=== PATIENT | female | born 1985 | race Caucasian/White ===

== ENCOUNTER 2017-09-05 18:13 | Emergency (ER) | payer OTHER ==
[2017-09-05] MEDS ORDERED: ONDANSETRON 4 MG TAB.RAPDIS PO ONE (18:43)
[2017-09-05] MEDS ORDERED: OXYCODONE-ACETAMINOPHEN 5-325 MG TABLET PO ONE (18:43)
--- NOTE | 2017-09-05 18:45 | ER Document Report ---
ED Medical Screen (RME) - General Chief Complaint: Laceration Stated Complaint: FINGER LACERATION Time Seen by Provider: 09/05/17 18:41 Notes: 31-year-old female patient with amputation of the tip of the left index finger. Looking at the limited piece it appears to have just a barely gone past the dermis at the fingertip. She states the pain is not too bad right now but becomes quite severe when it is unwrapped. She will be given pain medications at this time to possibly help decrease her discomfort when she is treated in the main ED. I have greeted and performed a rapid initial assessment of this patient. A comprehensive ED assessment and evaluation of the patient, analysis of test results and completion of the medical decision making process will be conducted by additional ED providers. TRAVEL OUTSIDE OF THE [place] IN LAST 30 DAYS: No - Related Data Allergies/Adverse Reactions: No Known Allergies Allergy (Verified 09/05/17 18:18) Past Medical History - Social History Chew tobacco use (# tins/day): No Frequency of alcohol use: Occasional Drug Abuse: None - Past Medical History Cardiac Medical History: Reports: Hx Hypertension - hx of 2007-no current meds Denies: Hx Coronary Artery Disease, Hx Heart Attack Pulmonary Medical History: Denies: Hx Asthma, Hx Bronchitis, Hx COPD, Hx Pneumonia Neurological Medical History: Denies: Hx Cerebrovascular Accident, Hx Seizures Renal/ Medical History: Denies: Hx Peritoneal Dialysis Musculoskeltal Medical History: Reports Hx Arthritis Past Surgical History: Reports: Hx Oral Surgery - jaw realignment, Hx Orthopedic Surgery - bilateral ankles, - Immunizations Hx Diphtheria, Pertussis, Tetanus Vaccination: Yes Physical Exam - Vital signs Vitals: Temp Pulse Resp BP Pulse Ox 97.8 F 71 18 136/80 H 98 09/05/17 18:32 09/05/17 18:32 09/05/17 18:32 09/05/17 18:32 09/05/17 18:32 Course - Vital Signs Vital signs: Temp Pulse Resp BP Pulse Ox 97.8 F 71 18 136/80 H 98 09/05/17 18:32 09/05/17 18:32 09/05/17 18:33 09/05/17 18:32 09/05/17 18:32
[2017-09-05] MEDS ORDERED: BUPIVACAINE HCL 0.5 % INJ/PF 30 ML SDV INJ ONE (19:04)
[2017-09-05] MEDS ORDERED: LIDOCAINE 1% INJ-PF (10 MG/ML) 30 ML SDV INJ ONE (19:04)
--- NOTE | 2017-09-05 19:11 | ER Document Report ---
ED Extremity Problem, Upper - General Chief Complaint: Laceration Stated Complaint: FINGER LACERATION Time Seen by Provider: 09/05/17 18:41 Mode of Arrival: Ambulatory Information source: Patient TRAVEL OUTSIDE OF THE [place] IN LAST 30 DAYS: No - HPI Patient complains to provider of: Injury, Left Onset: Just prior to arrival Recent injury: Yes Where: Home Notes: Patient arrives with complaints of left fingertip laceration. She was cutting tobias fat when she accidentally sliced the tip of her left index finger off. She is having trouble getting the wound to stop bleeding. She denies any other injuries. She denies any numbness, tingling, weakness. She is on no blood thinning medications. She has had a tetanus within the last 5 years. She denies any nausea, vomiting, diarrhea. No other complaints or injuries. - Related Data Allergies/Adverse Reactions: No Known Allergies Allergy (Verified 09/05/17 18:18) Past Medical History - Social History Smoking Status: Never Smoker Chew tobacco use (# tins/day): No Frequency of alcohol use: Occasional Drug Abuse: None Family History: Reviewed & Not Pertinent Patient has suicidal ideation: No Patient has homicidal ideation: No - Past Medical History Cardiac Medical History: Reports: Hx Hypertension - hx of 2007-no current meds Denies: Hx Coronary Artery Disease, Hx Heart Attack Pulmonary Medical History: Denies: Hx Asthma, Hx Bronchitis, Hx COPD, Hx Pneumonia Neurological Medical History: Denies: Hx Cerebrovascular Accident, Hx Seizures Renal/ Medical History: Denies: Hx Peritoneal Dialysis Musculoskeltal Medical History: Reports Hx Arthritis Past Surgical History: Reports: Hx Oral Surgery - jaw realignment, Hx Orthopedic Surgery - bilateral ankles, - Immunizations Hx Diphtheria, Pertussis, Tetanus Vaccination: Yes Review of Systems - Review of Systems -: Yes All other systems reviewed and negative Physical Exam - Vital signs Vitals: Temp Pulse Resp BP Pulse Ox 97.8 F 71 18 136/80 H 98 09/05/17 18:32 09/05/17 18:32 09/05/17 18:32 09/05/17 18:32 09/05/17 18:32 - Notes Notes: GENERAL: alert, cooperative, nontoxic, no distress. HEAD: normocephalic, atraumatic EYES: conjunctiva pink without discharge, no external redness or swelling. EARS: no external swelling, no external redness NOSE: atraumatic, no external swelling MOUTH/THROAT: mucous membranes moist and pink NECK: soft, supple, full range of motion, no meningismus. CHEST: no distress, lungs clear and equal throughout. No wheezing, rales, rhonchi. CARDIAC: regular rate and rhythm, no murmur, normal capillary refill, normal pulses. BACK: full range of motion, no CVA tenderness. EXTREMITIES: full range of motion of all extremities. No redness, no swelling. Patient is noted to have a deep avulsion laceration to the left index finger. There is active bleeding noted. There is no surrounding erythema. Bleeding is controlled with pressure. Full range of motion of the finger. NEURO: alert and oriented 3, no focal deficits, full range of motion of all extremities. PYSCH: appropriate mood, affect. Patient is cooperative. SKIN: pink, warm, dry, no rash. Course - Re-evaluation Re-evalutation: 09/05/17 20:33 Patient is nontoxic appearing with stable vitals. The patient had an avulsion laceration to the tip of her left index finger. Her tetanus is up-to-date. Neurovascular she is intact. The wound was cleaned with Shur-Clens and irrigated with normal saline and Gelfoam dressing was applied. There is no bleeding noted after this was placed. I observe the patient for approximately 15 minutes after the dressing was placed and she continues to have no bleeding. The patient will be discharged home with a prescription for Philipp. Instructions for wound care. Follow-up if not better in 1 week, sooner for increasing pain, fever, redness, numbness, tingling, weakness, any further concerns. The patient is noted to have elevated blood pressure during today's emergency department visit. The patient was informed of this finding. The patient was instructed that this may be related to pre-hypertension and requires further evaluation with a primary care provider. The patient has no hypertensive symptoms at this time. The patient's emergency department workup and current diagnosis were explained to the patient and or family. Follow-up instructions were provided. Medications if prescribed were discussed. Instructions for when to return to the emergency department including specific worrisome symptoms were discussed with the patient and/or family. - Vital Signs Vital signs: Temp Pulse Resp BP Pulse Ox 97.8 F 71 18 136/80 H 98 09/05/17 18:32 09/05/17 18:32 09/05/17 18:33 09/05/17 18:32 09/05/17 18:32 Procedures - Laceration/Wound Repair left index finger Wound length (cm): 1 Wound's Depth, Shape: Flap Laceration pre-procedure: Shur-Clens applied Anesthetic type: Other - Digital block with 1% lidocaine and half percent bupivacaine Wound explored: Clean, No foreign body removed Irrigated w/ Saline (mLs): 20 Wound Repaired With: Thrombi pad Post-procedure wound care: Sterile dressing applied Post-procedure NV exam normal: Yes Complications: No Discharge - Discharge Clinical Impression: Laceration of left index finger Qualifiers: Encounter type: initial encounter Damage to nail status: without damage Foreign body presence: without foreign body Qualified Code(s): S61.211A - Laceration without foreign body of left index finger without damage to nail, initial encounter Condition: Stable Disposition: HOME, SELF-CARE Instructions: Laceration Care ([facility]) Additional Instructions: Keep wound clean and dry. Keep your dressing in place for at least 3 days. Keep your hand elevated. Follow-up for increased pain, fever, redness, drainage , any further concerns. Your blood pressure was elevated during today's visit. Have this rechecked with your doctor. Prescriptions: Hydrocodone/Acetaminophen [Philipp 5-325 mg Tablet] 2 tab PO Q6H PRN #10 tab PRN Reason: Forms: Elevated Blood Pressure, Smoking Cessation Education
[2017-09-05 20:49] VITALS: BP 110/66
== END 2017-09-05 20:45 | disposition home or self-care (01) ==
LOC: ER 18:13
PROC: 0HQGXZZ Repair Left Hand Skin, External Approach (ICD-10-PCS; principal; 2017-09-05)
DX: S61.211A Laceration without foreign body of left index finger without damage to nail, initial encounter (principal); W26.0XXA Contact with knife, initial encounter
CPT/HCPCS: 99282; 12001; J3490 ×2; S0119

== ENCOUNTER 2018-08-26 07:09 | Day surgery (SDC) | payer OTHER ==
[2018-08-14 10:37] LABS: HEMATOCRIT 43.9 % (36.0-47.0); MEAN CORPUSCULAR HEMOGLOBIN 31.9 pg (27.0-33.4); MEAN CORPUSCULAR HGB CONC 34.1 g/dL (32.0-36.0); MEAN CORPUSCULAR VOLUME 94 fl (80-97); PLATELET COUNT 221 10^3/uL (150-450); RED BLOOD COUNT 4.69 10^6/uL (3.72-5.28); RED CELL DISTRIBUTION WIDTH 12.9 % (11.5-14.0); WHITE BLOOD COUNT 8.9 10^3/uL (4.0-10.5)
[2018-08-14 10:39] LABS: APPEARANCE,URINE CLEAR; BILIRUBIN,URINE NEGATIVE (NEGATIVE); COLOR,URINE YELLOW; GLUCOSE, URINE NEGATIVE (NEGATIVE); KETONES,URINE NEGATIVE (NEGATIVE); LEUKOCYTE ESTERASE,URINE NEGATIVE (NEGATIVE); NITRITE,URINE NEGATIVE (NEGATIVE); PROTEIN,URINE NEGATIVE (NEGATIVE); UROBILINOGEN,URINE NEGATIVE mg/dL (<2.0)
[2018-08-14 11:21] LABS: ANION GAP 7 (5-19); BLOOD UREA NITROGEN 13 mg/dL (7-20); CALCIUM 9.3 mg/dL (8.4-10.2); CARBON DIOXIDE 27 mmol/L (22-30); CHLORIDE 105 mmol/L (98-107); GLUCOSE 89 mg/dL (75-110); POTASSIUM 4.1 mmol/L (3.6-5.0); SODIUM 138.5 mmol/L (137-145)
--- NOTE | 2018-08-14 11:29 | RADIOLOGY REPORT (SQ) ---
EXAM DESCRIPTION: CHEST PA/LATERAL COMPLETED DATE/TIME: 08/14/2018 10:23 am REASON FOR STUDY: PRE-OP COMPARISON: 09/12/2015 EXAM PARAMETERS: NUMBER OF VIEWS: two views TECHNIQUE: Digital Frontal and Lateral radiographic views of the chest acquired. RADIATION DOSE: NA LIMITATIONS: none FINDINGS: LUNGS AND PLEURA: No opacities, masses or pneumothorax. No pleural effusion. MEDIASTINUM AND HILAR STRUCTURES: No masses or contour abnormalities. HEART AND VASCULAR STRUCTURES: Heart normal size. No evidence for failure. BONES: No acute findings. Incidentally noted cervical rib on the right. HARDWARE: None in the chest. Partially visualized right mandibular hardware. OTHER: No other significant finding. IMPRESSION: NO SIGNIFICANT RADIOGRAPHIC FINDING IN THE CHEST. TECHNICAL DOCUMENTATION: JOB ID: [id number] [employer]- All Rights Reserved Reading location - IP/workstation name: [email or web address]
--- NOTE | 2018-08-14 23:02 | EKG REPORT ---
SEVERITY:- NORMAL ECG - SINUS RHYTHM : Confirmed by: Bibi Benson MD 14-Aug-2018 23:01:24
[~2018-08-26 07:09] MED LIST: ACETAMINOPHEN 1,000 MG/100 ML RTUPB IV ONE; BUPIVACAINE HCL 0.5 % INJ/PF 30 ML SDV ONE; CEFAZOLIN SODIUM 2 GM in DEXTROSE 5%-WATER 100 ML IV PRN; DEXAMETHASONE SOD PHOSPHATE INJ 4 MG/1 ML VIAL ONE; FENTANYL CITRATE INJ/PF 100 MCG/2 ML AMPUL ONE; LACTATED RINGERS 1000 ML IV PRN; LIDOCAINE 0.5% INJ-PF (5 MG/ML) 50 ML SDV SUBCUT PRN; MIDAZOLAM 2 MG/2 ML INJ ONE; MORPHINE SULFATE 10 MG/ML INJ ONE; ONDANSETRON HCL INJ/PF 4 MG/2 ML SDV ONE; PROPOFOL INJ 200 MG/20 ML VIAL IV ONE; SCOPOLAMINE HYDROBROMIDE 1.5 MG PATCH.TD72 TD PRN
[2018-08-26] MEDS: SCOPOLAMINE HYDROBROMIDE 1.5 MG PATCH.TD72 ONE ×2 (07:15→08:25)
[2018-08-26] MEDS ORDERED: PROMETHAZINE HCL INJ 25 MG/1 ML VIAL IV PRN ×2 (09:32)
[2018-08-26] MEDS ORDERED: FENTANYL CITRATE INJ/PF 100 MCG/2 ML AMPUL IV PRN ×3 (09:32)
[2018-08-26] MEDS ORDERED: DIPHENHYDRAMINE HCL 50 MG/ML VIAL IV PRN (09:32)
[2018-08-26] MEDS ORDERED: MEPERIDINE HCL/PF INJ 25 MG/1 ML DISP.SYRIN IV PRN (09:32)
[2018-08-26] MEDS ORDERED: MORPHINE SULFATE 10 MG/ML INJ IV PRN ×2 (09:32→10:54)
--- NOTE | 2018-08-26 10:36 | Operative Report ---
Operative Report DATE OF SURGERY: 08/26/18 PREOPERATIVE DIAGNOSIS: Left ankle arthritis OPERATION: Left ankle arthrodesis SURGEON: CAROL NYE ANESTHESIA: GA ESTIMATED BLOOD LOSS: 25 PROCEDURE: Implant used: Synthes stainless steel anterior tibiotalar fusion plate With the patient supine on the operative table left lower extremities prepped and draped in sterile fashion. Limb is elevated for exsanguination tourniquet inflated to 280 torr. Longitudinal incisions made over the anterior aspect of the ankle and the anterior tibialis tendon sheath is entered. The purpose for this is to make sure that we avoid the neurovascular structures nearby. The ankle is then exposed through the anterior tibialis tendon sheath. The anterior cortex of the distal tibia is removed using an osteotome. The ankle joint is then exposed using a lamina stone driller helper. An oscillating saw was used to resect the articular surface of the distal tibia as well as the proximal talus. Alignment is satisfactory for neutral varus valgus as well as neutral plantar reduced dorsiflexion. Next the ankle is reduced in the intended arthrodesis position and its alignment is held using a Steinmann pin percutaneously through the plantar surface of the foot. The Dexter stainless steel anterior tibiotalar fusion plate is applied to the anterior surface of the tibia and the proximal surface of the talus. It secured to the talus and then a double compression is performed proximally through the plate. Ultimately 4 screws were placed bicortically through the tibia and 3 screws through the talus. At this point the tourniquet was deflated. Hemostasis obtained with electrocautery. Wound is irrigated with bulb lavage. Is closed in layers is interrupted Vicryl followed by nylon. A sterile compressive dressing posterior plaster splint were applied. The patient's return to PACU in satisfactory condition.
[2018-08-26] MEDS ORDERED: FENTANYL CITRATE INJ/PF 100 MCG/2 ML AMPUL ONE (10:44)
[2018-08-26] MEDS ORDERED: TRANEXAMIC ACID INJ/PF 1,000 MG/10 ML SDV IV ONE (10:45)
[2018-08-26] MEDS ORDERED: ONDANSETRON 4 MG TAB.RAPDIS SL PRN (10:54)
[2018-08-26] MEDS ORDERED: OXYCODONE HCL IR 5 MG TABLET PO PRN (10:54)
[2018-08-26] MEDS ORDERED: ONDANSETRON HCL INJ/PF 4 MG/2 ML SDV ONE (11:15)
--- NOTE | 2018-08-26 12:12 | RADIOLOGY REPORT (SQ) ---
EXAM DESCRIPTION: ANKLE LEFT AP/LATERAL COMPLETED DATE/TIME: 08/26/2018 10:55 am REASON FOR STUDY: ORIF LEFT ANKLE / ARTHRODESIS ASST WITH FLUORO IN OR COMPARISON: None. NUMBER OF VIEWS: Fluoro time 0.4 minutes. 4 images submitted. Instrumentation along the ankle bridges the talofibular articulation. Please correlate with operativ e note. LIMITATIONS: None. FINDINGS: There is no acute or significant bone, joint or soft tissue abnormality. OTHER: No other significant finding. IMPRESSION: NORMAL STUDY. TECHNICAL DOCUMENTATION: JOB ID: [id number] Reading location - IP/workstation name: [email or web address]
--- NOTE | 2018-08-26 12:13 | RADIOLOGY REPORT (SQ) ---
EXAM DESCRIPTION: NO CHG FLUORO COMPLETED DATE/TIME: 08/26/2018 10:55 am REASON FOR STUDY: ORIF LEFT ANKLE / ARTHRODESIS ASST WITH FLUORO IN OR COMPARISON: None. FINDINGS: See combined report same date. Fluoro time 0.4 minutes. TECHNICAL DOCUMENTATION: JOB ID: [id number] Reading location - IP/workstation name: [email or web address]
[2018-08-26] MEDS ORDERED: OXYCODONE HCL IR 5 MG TABLET ONE (12:17)
[2018-08-26 14:29] VITALS: BP 122/75
[2018-08-26] MEDS ORDERED: CEFAZOLIN SODIUM 2 GM in DEXTROSE 5%-WATER 100 ML IV SCH (18:00)
[2018-08-26] MEDS ORDERED: CEFAZOLIN SODIUM 2 GM in DEXTROSE 5%-WATER 100 ML IV ONE (18:00)
[2018-08-27] MEDS ORDERED: CEFAZOLIN SODIUM 2 GM in DEXTROSE 5%-WATER 100 ML IV ONE (02:00)
--- NOTE | 2018-08-28 06:13 | Discharge Summary ---
Discharge Summary (SDC) - Discharge Final Diagnosis: Left ankle arthritis Date of Surgery: 08/26/18 Discharge Date: 08/26/18 Condition: Good Forms: ASU Anesthesia D/C Instruction, Discharge POC-Surgical Service Treatment or Instructions: Touchdown weightbearing left lower extremity Referrals: CAROL NYE MD [ACTIVE STAFF] - (Keep your scheduled follow-up appointment. If not previously made call the office to make your appointment.) Discharge Diet: As Tolerated, Regular Respiratory Treatments at Home: Deep Breathing/Coughing Discharge Activity: Balance Activity w/Rest Home Care Assistance: None Needed Report the Following to Your Physician Immediately: Shortness of Breath, Increase in Pain, Fever over 101 Degrees, Unusual Bleeding, Redness, Swelling, Warmth, Drainage-Foul Smelling, Numbness, Tingling Sensation, IV Site Infection Signs
== END 2018-08-26 13:55 | disposition home or self-care (01) ==
LOC: OROUT 07:09
PROVIDERS: ATTEND Orthopaedic Surgery
DX: M19.072 Primary osteoarthritis, left ankle and foot (principal); M25.572 Pain in left ankle and joints of left foot; I10 Essential (primary) hypertension; Z87.891 Personal history of nicotine dependence
CPT/HCPCS: 27870; 93005; 36415; 85027; 81025; 80048; 81001; 73600; 71046; 93010; C1713 ×7; C1769; J2250; J3490 ×2; J0690; J1100; J3010; J2270; J2405; J2704; J0131; 01480